=== PATIENT | female | born 1970 | race Caucasian/White ===

== ENCOUNTER 2016-11-10 12:39 | Emergency (ER) | payer OTHER ==
[~2016-11-10] VITALS: Ht 157.5 cm; Wt 90.9 kg
[~2016-11-10 12:39] MED LIST: NOMED
--- NOTE | 2016-11-10 14:36 | ED.REPORT ---
HPI-Back Pain 40 and Over Date of Service Nov 10, 2016 ED Provider: Cyndee Downey History of Present Illness: not in chair at 1434 Nursing Notes Stated Complaint: LEFT SHOULDER/HIP PAIN,NAUSEA Chief Complaint: Back Pain or Injury Allergies: Coded Allergies: Contrast Media (Unverified Allergy, Mild, Rash,Itching,, 11/10/16) Miscellaneous Medications No Historical Medication (No Historical Medication) Ea General Time Seen by MD: 14:34 Past Medical History Past Medical History Healthy Past Surgical History Reports: Cholecystectomy Smoking History Current Every Day Smoker, Heavy Tobacco Smoker Social History Alcohol Use: "Social" Drug Use: Denies drug use Ambulatory Status Independent Physical Exam Initial Vital Signs Vital Signs (First) Date Time Temp Pulse Resp B/P Pulse Ox O2 Delivery O2 Flow Rate FiO2 11/10/16 12:39 36.6 Room Air Discharge & Departure Referrals: NOPCP (PCP) Cyndee Downey Nov 10, 2016 14:36
== END 2016-11-10 16:00 | disposition left against medical advice (07) ==
LOC: SED 12:39
DX: M54.6 Pain in thoracic spine (principal); Z53.21 Procedure and treatment not carried out due to patient leaving prior to being seen by health care provider